=== PATIENT | female | born 1985 | race Caucasian/White ===

== ENCOUNTER 2021-01-07 18:38 | Inpatient (IN) | payer BC ==
[2021-01-07] MEDS ORDERED: OXYTOCIN 10 UNIT/ML 1 ML VIAL IM PRN (19:25)
[2021-01-07] MEDS ORDERED: METHYLERGONOVINE 0.2 MG/ML 1 ML AMP IM PRN (19:25)
[2021-01-07] MEDS ORDERED: LIDOCAINE 0.5% (PF) 5 MG/ML (50 ML SDV) SQ PRN (19:25)
[2021-01-07] MEDS ORDERED: TERBUTALINE 1 MG/ML VIAL SQ PRN (19:25)
[2021-01-07] MEDS ORDERED: AMPICILLIN 2,000 MG in SODIUM CHLORIDE 0.9% 100 ML IVPB STA (19:25)
[2021-01-07] MEDS ORDERED: CARBOPROST TROMETHAMINE 250 MCG/ML 1 ML AMP IM PRN (19:25)
[2021-01-07] MEDS ORDERED: OXYTOCIN 30 UNITS/500 ML NS 30 UNIT in SALINE 1 500ML.BAG IV SCH (19:30)
[2021-01-07] MEDS: LACTATED RINGERS 1,000 ML IV SCH ×2 (19:41→23:39)
[2021-01-07 19:52] LABS: Basophils # (A) 0.1 k/uL (0-0.2); Basophils % (A) 0 %; Eosinophils # (A) 0.1 k/uL (0-0.7); Eosinophils % (A) 1 %; HCT 37.8 % (34.0-46.0); HGB 13.3 gm/dL (11.4-16.0); Hypochromasia Slight; Lymphocytes # (A) 2.3 k/uL (1.0-4.8); Lymphocytes % (A) 19 %; MCH 33.6 pg (25.0-35.0); MCHC 35.2 g/dL (31.0-37.0); MCV 95.4 fL (80.0-100.0); Monocytes # (A) 0.5 k/uL (0-1.0); Monocytes % (A) 4 %; Neutrophils # (A) 9.1 k/uL (1.3-7.7); Neutrophils % (A) 75 %; Platelet Count 246 k/uL (150-450); Poikilocytosis Slight; RBC 3.96 m/uL (3.80-5.40); RDW 15.9 % (11.5-15.5); WBC 12.1 k/uL (3.8-10.6)
[2021-01-07] MEDS ORDERED: ROPIVACAINE 5MG/ML 20ML VIAL ONE (23:24)
[2021-01-07] MEDS ORDERED: SODIUM CHLORIDE 0.9% 100 ML BAG ONE (23:24)
[2021-01-07] MEDS ORDERED: fentaNYL (PF) 50 MCG/ML 5 ML AMP ONE (23:24)
[2021-01-07] MEDS ORDERED: AMPICILLIN 1,000 MG in SODIUM CHLORIDE 0.9% 50 ML IVPB SCH (23:30)
--- NOTE | 2021-01-07 23:58 | P.HPOB ---
History of Present Illness H&P Date: 01/07/21 Chief Complaint: SROM 35 year old presents at 38 weeks 6 days with spontaneous rupture of membranes. She started leaking at 4:30am but did not come to the hospital until after 6pm. Her cervix was 4/80/-1. She was not singh and hear tones 135 with moderate variability. Review of Systems All systems: negative Constitutional: Denies chills, Denies fever Eyes: denies blurred vision, denies pain Ears, nose, mouth and throat: Denies headache, Denies sore throat Cardiovascular: Denies chest pain, Denies shortness of breath Respiratory: Denies cough Gastrointestinal: Denies abdominal pain, Denies diarrhea, Denies nausea, Denies vomiting Genitourinary: Denies dysuria, Denies hematuria Musculoskeletal: Denies myalgias Integumentary: Denies pruritus, Denies rash Neurological: Denies numbness, Denies weakness Psychiatric: Denies anxiety, Denies depression Endocrine: Denies fatigue, Denies weight change Past Medical History Past Medical History: No Reported History History of Any Multi-Drug Resistant Organisms: None Reported Past Surgical History: No Surgical Hx Reported Past Psychological History: No Psychological Hx Reported Smoking Status: Never smoker Past Drug Use History: None Reported Medications and Allergies Home Medications Medication Instructions Recorded Confirmed Type Pnv,Calcium 72/Iron/Folic Acid 1 tab PO DAILY 01/07/21 01/07/21 History [ Plus Tablet] Allergies Allergy/AdvReac Type Severity Reaction Status Date / Time No Known Allergies Allergy Verified 01/07/21 19:02 Exam Osteopathic Statement: *. No significant issues noted on an osteopathic structural exam other than those noted in the History and Physical/Consult. Vital Signs Temp Pulse Resp BP Pulse Ox 01/07/21 19:24 97.7 F 69 16 126/77 99 01/07/21 19:01 97.7 F 69 16 126/77 99 Intake and Output 01/07/21 01/07/21 01/08/21 14:59 22:59 06:59 Other: # Voids 1 Weight 102.512 kg Heart: Regular rate and rhythm Lungs: Clear to auscultation bilaterally Abdomen: Soft, nontender Extremities: Negative Homans sign Results Result Diagrams: 01/07/21 19:39 Abnormal Lab Results - Last 24 Hours (Table) 01/07/21 Range/Units 19:39 WBC 12.1 H (3.8-10.6) k/uL RDW 15.9 H (11.5-15.5) % Neutrophils # 9.1 H (1.3-7.7) k/uL Assessment and Plan (1) Spontaneous rupture of amniotic membranes Current Visit: Yes Status: Acute Code(s): LUC0317 - SNOMED Code(s): 775847926 Plan: 1. antibiotics for prolonged rupture 2. pitocin augmentation 3. anticipate normal vaginal delivery
[2021-01-08] MEDS ORDERED: diphenhydrAMINE 50 MG CAP PO PRN (02:42)
[2021-01-08] MEDS ORDERED: Rhogam IMMUNE GLOBULIN 1,500 UNIT/1 ML IM ONE (02:42)
[2021-01-08] MEDS ORDERED: BENZOCAINE/MENTHOL SPRAY 1 GM/SPRAY AEROSOL TOPICAL PRN (02:42)
[2021-01-08] MEDS ORDERED: diphenhydrAMINE 25 MG CAP PO PRN (02:42)
[2021-01-08] MEDS ORDERED: ZOLPIDEM 5 MG TAB PO PRN (02:42)
[2021-01-08] MEDS ORDERED: ACETAMINOPHEN TAB 325 MG TAB PO PRN (02:42)
[2021-01-08] MEDS ORDERED: HYDROCORTISONE 2.5% RECTAL CREAM 30 GM TUBE RECTAL PRN (02:42)
[2021-01-08] MEDS ORDERED: diphenhydrAMINE 50 MG/ML 1 ML VIAL IVP PRN ×2 (02:42)
[2021-01-08] MEDS ORDERED: SIMETHICONE 80 MG CHEWABLE PO PRN (02:42)
[2021-01-08] MEDS ORDERED: LANOLIN CREAM 5 GM TUBE TOPICAL PRN (02:42)
--- NOTE | 2021-01-08 02:42 | P.PROBDLV ---
Vaginal Delivery Note - . Vaginal Delivery Note: 35 year old presents at 38 weeks 6 days with spontaneous rupture of membranes. She started leaking at 4:30am but did not come to the hospital until after 6pm. Her cervix was 4/80/-1. She was not singh and hear tones 135 with moderate variability. She was admitted to [facility] ampicillin was started and Pitocin was also started. When she was uncomfortable she did get an epidural. Her cervix was completely dilated at 12:22 AM. She labored down for a little while then pushed, delivered a viable male infant over intact perineum under epidural anesthesia at 2:25 AM. Head delivered OA, nuchal cord 2 easily reduced, anterior shoulder delivered gentle downward guidance followed by posterior shoulder and rest of body. Nose and mouth bulb suctioned, cord clamped and cut, placed mother's abdomen. Apgars 8, 9, weight 7 lbs. 6 oz. Placenta delivered spontaneously, intact with three-vessel cord at 2:28 AM. Vagina, cervix, perineum inspected. Second-degree midline laceration was repaired with 3-0 Vicryl. Estimated blood loss 200 mL. Mother and baby in stable condition.
[2021-01-08] MEDS ORDERED: OXYTOCIN 30 UNITS/500 ML NS 30 UNIT in SALINE 1 500ML.BAG IV SCH (02:45)
[2021-01-08] MEDS: IBUPROFEN 600 MG TAB PO PRN ×3 (02:58→19:36)
[2021-01-08] MEDS: SENNOSIDES-DOCUSATE SODIUM 1 EACH TAB PO SCH ×2 (11:47→19:35)
[2021-01-09 06:05] LABS: Basophils % (A) 1 %; Eosinophils # (A) 0.1 k/uL (0-0.7); Eosinophils % (A) 1 %; HCT 32.6 % (34.0-46.0); HGB 11.3 gm/dL (11.4-16.0); Lymphocytes # (A) 2.5 k/uL (1.0-4.8); Lymphocytes % (A) 28 %; MCH 33.1 pg (25.0-35.0); MCHC 34.5 g/dL (31.0-37.0); Mean Platelet Volume 9.6; Monocytes # (A) 0.3 k/uL (0-1.0); Monocytes % (A) 4 %; Neutrophils # (A) 5.6 k/uL (1.3-7.7); Neutrophils % (A) 65 %; Platelet Count 195 k/uL (150-450); RDW 15.2 % (11.5-15.5); WBC 8.6 k/uL (3.8-10.6)
--- NOTE | 2021-01-09 06:36 | P.PNOBGVD ---
Subjective - Subjective Patient reports: Reports appetite normal, Reports voiding normally, Reports pain well controlled, Reports ambulating normally : doing well Objective - Latest Vital Signs Latest vital signs: Vital Signs Temp Pulse Resp BP 01/09/21 04:00 98.1 F 69 16 101/62 01/08/21 20:00 98.1 F 69 16 124/75 01/08/21 16:00 98.4 F 69 18 121/72 01/08/21 13:00 97.8 F 70 16 124/67 01/08/21 08:00 98.5 F 77 16 133/75 Intake and Output 01/08/21 01/08/21 01/09/21 14:59 22:59 06:59 Other: # Voids 1 - Exam Lungs: bilateral: normal Chest: Normal S1, Normal S2 Extremities: Present: normal Abdomen: Present: normal appearance, soft Uterus: Present: normal, firm - Labs Labs: Abnormal Lab Results - Last 24 Hours (Table) 01/09/21 Range/Units 05:39 RBC 3.40 L (3.80-5.40) m/uL Hgb 11.3 L (11.4-16.0) gm/dL Hct 32.6 L (34.0-46.0) % Assessment and Plan Assessment: day #1. Patient is resting without complaints and wishes to go home. Vital signs are stable and she is afebrile. Uterus is firm nontender and she is having normal lochia. My impression is this is a normal course. Plan is to continue routine care discharge home later today. (1) Normal vaginal delivery Current Visit: Yes Status: Acute Code(s): O80 - ENCOUNTER FOR FULL-TERM UNCOMPLICATED DELIVERY SNOMED Code(s): 17050071
--- NOTE | 2021-01-09 06:42 | P.DS ---
Providers Date of admission: 01/07/21 19:23 Expected date of discharge: 01/09/21 Attending physician: Tal Holder Primary care physician: Stated None - Discharge Diagnosis(es) (1) Normal vaginal delivery Current Visit: Yes Status: Acute Hospital Course: Please see dictated H&P for intimate details of this patient's admission. Brief summary this is a pleasant 35-year-old 1 para 0 female 9-0/7 weeks gestation who is admitted to labor and delivery with complaints of rupture membranes. Patient goes on to have a vaginal delivery of viable male . Please see dictated delivery note. day #1 patient's feeling well wishes to go home. Patient's felt to be stable for discharge home follow up with me in 6 weeks. Procedures: Normal spontaneous vaginal delivery Patient Condition at Discharge: Good Plan - Discharge Summary New Discharge Prescriptions: New Ibuprofen [Motrin] 600 mg PO Q6HR PRN #30 tab PRN Reason: Pain No Action Pnv,Calcium 72/Iron/Folic Acid [ Plus Tablet] 1 tab PO DAILY Discharge Medication List Pnv,Calcium 72/Iron/Folic Acid [ Plus Tablet] 1 tab PO DAILY 01/07/21 [History] Ibuprofen [Motrin] 600 mg PO Q6HR PRN #30 tab 01/09/21 [Rx] Follow up Appointment(s)/Referral(s): Tal Holder MD [STAFF PHYSICIAN] - 6 Weeks Patient Instructions/Handouts: Vaginal Delivery (DC) Activity/Diet/Wound Care/Special Instructions: No intercourse or anything per vagina for 6 weeks. Please call if any fever, chills, excessive vaginal bleeding, and/or abdominal pain. Discharge Disposition: HOME SELF-CARE
[2021-01-09 08:07] VITALS: BP 117/67; PULSE 72; RESP 14; TEMP 98
[2021-01-09] MEDS: SENNOSIDES-DOCUSATE SODIUM 1 EACH TAB PO SCH (09:21)
[2021-01-09] MEDS: IBUPROFEN 600 MG TAB PO PRN (09:21)
== END 2021-01-09 13:45 | disposition home or self-care (01) | DRG 807 ==
LOC: FBPOP 18:38 → 4FBP 19:23
PROVIDERS: ADMIT Obstetrics & Gynecology; ATTEND Obstetrics & Gynecology
PROC: 10E0XZZ Delivery of Products of Conception, External Approach (ICD-10-PCS; principal; 2021-01-08)
PROC: 0KQM0ZZ Repair Perineum Muscle, Open Approach (ICD-10-PCS; 2021-01-08)
DX: O69.81X0 Labor and delivery complicated by cord around neck, without compression, not applicable or unspecified (principal); Z37.0 Single live birth; O70.1 Second degree perineal laceration during delivery; Z3A.38 38 weeks gestation of pregnancy
CPT/HCPCS: 59025; 84112; 85025; 85461; 86850; 86900; 86901; 99213